=== PATIENT | male | born 1960 | race Caucasian/White ===

== ENCOUNTER 2017-05-13 00:13 | Inpatient (IN) | payer BC, OTHER ==
[2017-05-13] MEDS ORDERED: ONDANSETRON 4 MG/2 ML VIAL IVP STA (00:39)
[2017-05-13] MEDS ORDERED: SODIUM CHLORIDE 0.9% 1,000 ML IV STA (00:39)
[2017-05-13 00:51] LABS: Basophils % (A) 0 %; CH 29.9; CHCM 34.4; Eosinophils # (A) 0.2 k/uL (0-0.7); Eosinophils % (A) 2 %; HCT 46.6 % (39.0-53.0); HDW 2.76; HGB 16.3 gm/dL (13.0-17.5); Luc # (Auto) 0.19; Luc % (Auto) 2; Lymphocytes # (A) 1.9 k/uL (1.0-4.8); Lymphocytes % (A) 18 %; MCH 30.4 pg (25.0-35.0); MCHC 34.9 g/dL (31.0-37.0); MCV 87.3 fL (80.0-100.0); Mean Platelet Volume 7.1; Monocytes # (A) 0.7 k/uL (0-1.0); Monocytes % (A) 7 %; Neutrophils # (A) 7.7 k/uL (1.3-7.7); Neutrophils % (A) 72 %; RBC 5.34 m/uL (4.30-5.90); RDW 13.1 % (11.5-15.5); WBC 10.7 k/uL (3.8-10.6); WBC (Perox) 10.05
[2017-05-13 01:07] LABS: ALT 322 U/L (21-72); AST 422 U/L (17-59); Alkaline Phosphatase 127 U/L (38-126); Amylase 77 U/L (30-110); Anion Gap 15 mmol/L; Blood Urea Nitrogen 13 mg/dL (9-20); Carbon Dioxide 26 mmol/L (22-30); Chloride 102 mmol/L (98-107); Glucose 212 mg/dL (74-99); Non-African American GFR(MDRD) >60 (>60 ml/min/1.73 sqM); Potassium 3.8 mmol/L (3.5-5.1); Sodium 143 mmol/L (137-145); Total Bilirubin 3.7 mg/dL (0.2-1.3); Total Protein 7.6 g/dL (6.3-8.2)
[2017-05-13] MEDS ORDERED: PANTOPRAZOLE 40 MG/10 ML VIAL IVP STA (01:07)
[2017-05-13] MEDS ORDERED: MAG HYDROX/AL HYDROX/SIMETH 30 ML, HYOSCYAMINE ELIXIR 10 ML, CIMETIDINE HCL 300 MG PO STA ×3 (01:07)
[2017-05-13] MEDS ORDERED: HYDROmorphone 1 MG/ML 1 ML SYRINGE IVP STA (01:07)
[2017-05-13 01:09] LABS: Appearance,Urine Clear (Clear); Bilirubin,Urine 1+ (Negative); Glucose,Urine (UA) 3+ (Negative); Ketones,Urine 1+ (Negative); Leukocyte Esterase,Urine Negative (Negative); Mucus,Urine Moderate /hpf; Nitrite,Urine Negative (Negative); Particle Count 4852; Protein,Urine 1+ (Negative); RBC,Urine <1 /hpf (0-5); Specific Gravity,Urine 1.027 (1.001-1.035); UA Billing (MACRO vs. MICRO) MICRO; WBC,Urine 1 /hpf (0-5)
--- NOTE | 2017-05-13 01:24 | XR ---
EXAM: XR Abdomen, 1 View CLINICAL HISTORY: Abdominal pain, nausea, vomiting. TECHNIQUE: Frontal upright view of the abdomen/pelvis. Total images: 2. COMPARISON: Abdominal radiograph dated 07/15/14. FINDINGS: Gastrointestinal tract: Relatively paucity of bowel gas is nonspecific. No distended loops of small bowel or air-fluid levels. Small amount of stool and gas at the ascending colon. No evidence of free air. Surgical clip at the right upper quadrant. Bones/joints: Unremarkable as visualized. IMPRESSION: 1. Relatively paucity of bowel gas is nonspecific. 2. No distended loops of small bowel or air-fluid levels.
[2017-05-13] MEDS ORDERED: RX INFO: IV CONTRAST WAS GIVEN 1 EACH MISC MISCELLANE PRN (01:44)
--- NOTE | 2017-05-13 02:43 | ED ---
Abdominal Pain HPI - General Chief Complaint: Abdominal Pain Stated Complaint: abd pain Time Seen by Provider: 05/13/17 00:39 Source: patient, RN notes reviewed, old records reviewed Mode of arrival: ambulatory Limitations: no limitations - History of Present Illness Initial Comments: 56-year-old male patient's emergency Department chief complaint of epigastric and right upper quadrant abdominal pain for the past evening. Patient reports that he has a history of gallbladder issues. He states that he had a "gangrenous gallbladder that was partially removed". Patient reports that 2 years ago he had similar issues with stones being clogged in the common bile duct and cystic duct. Patient reports this pain feels similar to previous episodes. He denies any fever or chills. He reports he has been nauseated and did have one episode of vomiting. Bowel movements have been normal. Denies any associated back pain. - Related Data Home Medications Medication Instructions Recorded Confirmed No Known Home Medications [No 07/16/14 05/13/17 Known Home Medications] Allergies Allergy/AdvReac Type Severity Reaction Status Date / Time Barbiturates Allergy Unknown Verified 05/13/17 00:20 carbamazepine Allergy Unknown Verified 05/13/17 00:20 clindamycin Allergy Unknown Verified 05/13/17 00:20 diclofenac [Diclofenac] Allergy Unknown Verified 05/13/17 00:20 erythromycin base Allergy Unknown Verified 05/13/17 00:20 [Erythromycin Base] heparin Allergy Rash/Hives Verified 05/13/17 00:20 hydralazine [Hydralazine] Allergy Unknown Verified 05/13/17 00:20 lidocaine Allergy Unknown Verified 05/13/17 00:20 meprobamate Allergy Unknown Verified 05/13/17 00:20 methyldopa Allergy Unknown Verified 05/13/17 00:20 orphenadrine Allergy Unknown Verified 05/13/17 00:20 phenytoin Allergy Unknown Verified 05/13/17 00:20 rifampin Allergy Unknown Verified 05/13/17 00:20 spironolactone Allergy Unknown Verified 05/13/17 00:20 Sulfa (Sulfonamide Allergy Unknown Verified 05/13/17 00:20 Antibiotics) tramadol Allergy Unknown Verified 05/13/17 00:20 Review of Systems ROS Statement: Those systems with pertinent positive or pertinent negative responses have been documented in the HPI. ROS Other: All systems not noted in ROS Statement are negative. Past Medical History Additional Past Medical History / Comment(s): ACUTE INTERMITTANT PORPHYRIA History of Any Multi-Drug Resistant Organisms: None Reported Past Surgical History: Cholecystectomy Past Anesthesia/Blood Transfusion Reactions: No Reported Reaction Past Psychological History: No Psychological Hx Reported Smoking Status: Never smoker Past Alcohol Use History: None Reported Past Drug Use History: None Reported - Past Family History Mother Family Medical History: No Reported History, Diabetes Mellitus Father Additional Family Medical History / Comment(s): acute intermittent porphyria General Exam - General Exam Comments Initial Comments: 56-year-old male. Patient does not appear to be in any acute distress. Limitations: no limitations General appearance: alert, in no apparent distress Head exam: Present: atraumatic Eye exam: Present: normal appearance, PERRL, EOMI. Absent: scleral icterus, conjunctival injection, periorbital swelling ENT exam: Present: normal exam, mucous membranes moist Neck exam: Present: normal inspection. Absent: tenderness, meningismus, lymphadenopathy Respiratory exam: Present: normal lung sounds bilaterally. Absent: respiratory distress, wheezes, rales, rhonchi, stridor Cardiovascular Exam: Present: regular rate, normal rhythm, normal heart sounds. Absent: systolic murmur, diastolic murmur, rubs, gallop, clicks GI/Abdominal exam: Present: soft, tenderness (Mild right upper quadrant tenderness.), normal bowel sounds. Absent: distended, guarding, rebound, rigid Extremities exam: Present: normal inspection, full ROM, normal capillary refill. Absent: tenderness, pedal edema, joint swelling, calf tenderness Back exam: Present: normal inspection Neurological exam: Present: alert, oriented X3, CN II-XII intact Psychiatric exam: Present: normal affect, normal mood Skin exam: Present: warm, dry, intact, normal color. Absent: rash Course Vital Signs 05/13/17 05/13/17 00:17 03:27 Temperature 97.7 F 97.6 F Pulse Rate 88 77 Respiratory 18 18 Rate Blood Pressure 165/84 131/73 O2 Sat by Pulse 97 95 Oximetry Medical Decision Making - Medical Decision Making 56-year-old male patient's emergency Department chief complaint of epigastric and right upper quadrant abdominal pain for the past evening. Patient reports that he has a history of gallbladder issues. He states that he had a "gangrenous gallbladder that was partially removed". Patient reports that 2 years ago he had similar issues with stones being clogged in the common bile duct and cystic duct. Patient reports this pain feels similar to previous episodes. He denies any fever or chills. He reports he has been nauseated and did have one episode of vomiting. Lab work was reviewed and shows multiple elevated transaminases. Patient CAT scan was ordered and shows evidence of a 6 mm calcified density in the region of the distal common bile duct suspicious for choledocholithiasis. Common bile duct appears to be 7 mm. Discussed this case with Dr. Reyes. Patient will be admitted for elevated liver enzymes and the choledocholithiasis. Patient will remain nothing by mouth for the remainder of the day. - Lab Data Result diagrams: 05/13/17 00:20 05/13/17 00:20 Lab Results 05/13/17 05/13/17 05/13/17 Range/Units 00:20 00:20 00:55 WBC 10.7 H (3.8-10.6) k/uL RBC 5.34 (4.30-5.90) m/uL Hgb 16.3 (13.0-17.5) gm/dL Hct 46.6 (39.0-53.0) % MCV 87.3 (80.0-100.0) fL MCH 30.4 (25.0-35.0) pg MCHC 34.9 (31.0-37.0) g/dL RDW 13.1 (11.5-15.5) % Plt Count 389 (150-450) k/uL Neutrophils % 72 % Lymphocytes % 18 % Monocytes % 7 % Eosinophils % 2 % Basophils % 0 % Neutrophils # 7.7 (1.3-7.7) k/uL Lymphocytes # 1.9 (1.0-4.8) k/uL Monocytes # 0.7 (0-1.0) k/uL Eosinophils # 0.2 (0-0.7) k/uL Basophils # 0.0 (0-0.2) k/uL Sodium 143 (137-145) mmol/L Potassium 3.8 (3.5-5.1) mmol/L Chloride 102 (98-107) mmol/L Carbon Dioxide 26 (22-30) mmol/L Anion Gap 15 mmol/L BUN 13 (9-20) mg/dL Creatinine 1.00 (0.66-1.25) mg/dL Est GFR (MDRD) Af Amer >60 (>60 ml/min/1.73 sqM) Est GFR (MDRD) Non-Af >60 (>60 ml/min/1.73 sqM) Glucose 212 H (74-99) mg/dL Calcium 10.0 (8.4-10.2) mg/dL Total Bilirubin 3.7 H (0.2-1.3) mg/dL AST 422 H (17-59) U/L ALT 322 H (21-72) U/L Alkaline Phosphatase 127 H (38-126) U/L Total Protein 7.6 (6.3-8.2) g/dL Albumin 4.8 (3.5-5.0) g/dL Amylase 77 (30-110) U/L Lipase 162 (23-300) U/L Urine Color Dark Yellow Urine Appearance Clear (Clear) Urine pH 6.0 (5.0-8.0) Ur Specific [place] 1.027 (1.001-1.035) Urine Protein 1+ H (Negative) Urine Glucose (UA) 3+ H (Negative) Urine Ketones 1+ H (Negative) Urine Blood Negative (Negative) Urine Nitrite Negative (Negative) Urine Bilirubin 1+ H (Negative) Urine Urobilinogen 4.0 (<2.0) mg/dL Ur Leukocyte Esterase Negative (Negative) Urine RBC <1 (0-5) /hpf Urine WBC 1 (0-5) /hpf Urine Mucus Moderate H (None) /hpf - Radiology Data Radiology results: report reviewed CT abdomen and pelvis shows evidence of a 4 mm right 6 no major calcified density in the region of the distal common bile duct, suspicious for choledocholithiasis. No significant intrahepatic or extrahepatic biliary duct dilation. Common bile duct measures approximately 7 mm. The stone has a different appearance compared to prior exams. Read demonstrated cholecystectomy changes with residual gallstones of the cystic duct remnant. Also note there is a 52 mm cyst visualized in the left kidney. No renal stone or hydronephrosis. There is subtle mesenteric edema which is nonspecific and unchanged. Disposition Clinical Impression: Choledocholithiasis, Transaminitis, Nausea & vomiting, Calculus of cystic duct Disposition: ADMITTED IP TO THIS HOSP Condition: Stable Referrals: Raul Valdez MD [Primary Care Provider] - 1-2 days Time of Disposition: 03:47
--- NOTE | 2017-05-13 03:33 | CT ---
EXAM: CT Abdomen and Pelvis With Intravenous Contrast CLINICAL HISTORY: Upper abdominal pain, nausea, vomiting. TECHNIQUE: Multiple, contiguous axial cuts of the abdomen and pelvis are obtained from the lung bases to the ischial tuberosities after the administration of 100 cc Omnipaque 300. Sagittal and coronal reformatted images were created and reviewed. DLP: 1935.50 COMPARISON: CT abdomen and pelvis 07/15/2014. FINDINGS: The lung bases are clear. The liver and spleen are normal in size and free of mass lesions. There is a small hiatal hernia. There are surgical clips present in the gallbladder fossa compatible with prior cholecystectomy. There are multiple calcified gallstones within the cystic duct remnant. There is a 4 mm x 6 mm calcified density in the region of the distal common bile duct, suspicious for choledocholithiasis. However, there is no significant intrahepatic or extrahepatic biliary duct dilatation. The common bile duct measures 7 mm. The pancreas is unremarkable. The adrenal glands are unremarkable. The kidneys are normal in size and contour. There is a 15 mm cyst visualized in the mid pole of the left kidney. No ureteral stone or hydronephrosis. There is subtle central mesenteric edema, which is nonspecific and unchanged in the interval. No evidence of bowel obstruction. The appendix is unremarkable. Aorta is normal caliber. Incidental note is made of a retroaortic left renal vein. No free fluid or free air. There is a small periumbilical hernia. The osseous structures are normal IMPRESSION: 1. There is a 4 mm x 6 mm calcified density in the region of the distal common bile duct, suspicious for choledocholithiasis. No significant intrahepatic or extrahepatic biliary duct dilatation. The common bile duct measures 7 mm. Of note, the stone has a different appearance compared to the prior exam. 2. Redemonstrated cholecystectomy changes with residual gallstones at the cystic duct remnant. 3. Additional chronic and incidental findings as above.
[2017-05-13] MEDS ORDERED: HYDROmorphone 1 MG/ML 1 ML SYRINGE IV PRN (03:50)
[2017-05-13] MEDS ORDERED: LORazepam 2 MG/ML SYRINGE IV PRN (03:50)
[2017-05-13] MEDS ORDERED: ONDANSETRON 4 MG/2 ML VIAL IVP PRN (03:50)
[2017-05-13] MEDS ORDERED: NALOXONE 0.4 MG/ML 1 ML VIAL IV PRN (03:50)
[2017-05-13] MEDS: SODIUM CHLORIDE 0.9% 1,000 ML IV SCH ×4 (04:22→23:14)
[2017-05-13 04:56] VITALS: BMI 34.4
--- NOTE | 2017-05-13 08:29 | US ---
EXAMINATION TYPE: US gallbladder DATE OF EXAM: 05/13/2017 COMPARISON: CT abdomen and pelvis earlier today. CLINICAL HISTORY: Choledocholithiasis. ABD pain/ Pt has history of margarita with CBD stones removed in t he past EXAM MEASUREMENTS: Liver Length: 17.3 cm CBD: 0.7 cm Right Kidney: 10.4 x 5.5 x 5.1 cm Pancreas: Difficult to visualize due to large body habitus Liver: Heterogeneous, upper limits of normal for size Gallbladder: Surgically absent Evidence for sonographic Cook's sign: No CBD: 8mm echogenic foci visualized adjacent to GB surgical clips, ?correlation to CT findings Right Kidney: wnl Pancreas is suboptimally seen secondary to shadowing from overlying bowel gas appeared within normal limits on recent CT. Visualized liver is heterogeneously hyperechoic suggesting diffuse fatty infiltr ation. No worrisome intrahepatic masses or ductal dilatation is seen. Seen better on CT there is remn ant stone filled gallbladder or cystic duct remnant slightly more rounded in contour than normal duct adjacent to cholecystectomy clips. Cystic duct is prominent with low common hepatic duct confluence seen better on CT. Suspect distal common bile duct calculus on coronal image [address] CT[address] IMPRESSION: Calcifications in cystic duct remnant or remnant contracted gallbladder fragment. Promine nt cystic duct. Suspect choledocholithiasis. All findings seen better on recent CT. ERCP follow-up ad vised.
[2017-05-13] MEDS: PANTOPRAZOLE 40 MG/10 ML VIAL IV SCH (09:23)
--- NOTE | 2017-05-13 10:23 | P.GSCN ---
History of Present Illness Consult date: 05/13/17 Reason for Consult: Abdominal pain. Jaundice. History of present illness: Thank you very much for asking us to ask see this patient. I'm seeing him for Dr. De León. He he is a 56-year-old white male were and had a open cholecystectomy for acute gangrenous cholecystitis cholelithiasis. He has had the previous episodes of choledocholithiasis. Had to be transferred to [facility] because of unsuccessful ERCP here and apparently had a stone removed the then about the 2-3 years ago. Was admitted last night with the recurrent abdominal pain mostly in the epigastric right upper quadrant area associated with nausea and an episode of vomiting. Pain is improved as is his symptoms since he was admitted. Was found to have elevated LFTs. Computed tomography scan and ultrasound showed evidence of the distal common bile duct stone with question of calcifications in the cystic duct remnant. Patient is otherwise fairly healthy. No medications on a daily basis at home. No fever or chills. ALLERGIES. Barbiturates carbamazepine. Clindamycin diclofenac. Systems review otherwise negative. No chest pain or cough hemoptysis no cardiac or respiratory issues. No urinary symptoms. No change in his bowel habits. No blood in his stool. On examination the patient is well-built well-nourished resting comfortably in no acute distress. Overweight. Slightly jaundiced. Vitals are normal. Head and neck are normal. Heart and lungs are clear. Abdomen is soft with the hardly any tenderness now in the epigastric right upper quadrant area no guarding or rebound. No mass or organomegaly or hernias noted. Has well-healed scar in the right upper quadrant. Laboratory studies reviewed. WBCs 10,700. Hemoglobin 16.3. Total bilirubin is 3.7. AST 422 AST 322 and alkaline phosphatase 127. Impression. Choledocholithiasis confirmed on ultrasound and computed tomography scan with the jaundice. Recommendation. Agree with plans for GI consult the for ERCP. In the meantime close monitoring of the patient in the his LFTs. We will follow with you. Past Medical History Past Medical History: Diabetes Mellitus Additional Past Medical History / Comment(s): ACUTE INTERMITTANT PORPHYRIA History of Any Multi-Drug Resistant Organisms: None Reported Past Surgical History: Cholecystectomy Additional Past Surgical History / Comment(s): Gall stone removal Past Anesthesia/Blood Transfusion Reactions: No Reported Reaction Past Psychological History: No Psychological Hx Reported Smoking Status: Never smoker Past Alcohol Use History: None Reported Past Drug Use History: None Reported - Past Family History Mother Family Medical History: No Reported History, Diabetes Mellitus Father Additional Family Medical History / Comment(s): acute intermittent porphyria Medications and Allergies Home Medications Medication Instructions Recorded Confirmed Type No Known Home Medications [No 07/16/14 05/13/17 History Known Home Medications] Allergies Allergy/AdvReac Type Severity Reaction Status Date / Time Barbiturates Allergy Unknown Verified 05/13/17 00:20 carbamazepine Allergy Unknown Verified 05/13/17 00:20 clindamycin Allergy Unknown Verified 05/13/17 00:20 diclofenac [Diclofenac] Allergy Unknown Verified 05/13/17 00:20 erythromycin base Allergy Unknown Verified 05/13/17 00:20 [Erythromycin Base] heparin Allergy Rash/Hives Verified 05/13/17 00:20 hydralazine [Hydralazine] Allergy Unknown Verified 05/13/17 00:20 lidocaine Allergy Unknown Verified 05/13/17 00:20 meprobamate Allergy Unknown Verified 05/13/17 00:20 methyldopa Allergy Unknown Verified 05/13/17 00:20 orphenadrine Allergy Unknown Verified 05/13/17 00:20 phenytoin Allergy Unknown Verified 05/13/17 00:20 rifampin Allergy Unknown Verified 05/13/17 00:20 spironolactone Allergy Unknown Verified 05/13/17 00:20 Sulfa (Sulfonamide Allergy Unknown Verified 05/13/17 00:20 Antibiotics) tramadol Allergy Unknown Verified 05/13/17 00:20 Surgical - Exam Vital Signs Temp Pulse Resp BP Pulse Ox 97.7 F 88 18 165/84 97 05/13/17 00:17 05/13/17 00:17 05/13/17 00:17 05/13/17 00:17 05/13/17 00:17 Results - Labs 05/13/17 00:20 05/13/17 00:20 Abnormal Lab Results - Last 24 Hours (Table) 05/13/17 05/13/17 05/13/17 Range/Units 00:20 00:20 00:55 WBC 10.7 H (3.8-10.6) k/uL Glucose 212 H (74-99) mg/dL Total Bilirubin 3.7 H (0.2-1.3) mg/dL AST 422 H (17-59) U/L ALT 322 H (21-72) U/L Alkaline Phosphatase 127 H (38-126) U/L Urine Protein 1+ H (Negative) Urine Glucose (UA) 3+ H (Negative) Urine Ketones 1+ H (Negative) Urine Bilirubin 1+ H (Negative) Urine Mucus Moderate H (None) /hpf Diabetes panel 05/13/17 Range/Units 00:20 Sodium 143 (137-145) mmol/L Potassium 3.8 (3.5-5.1) mmol/L Chloride 102 (98-107) mmol/L Carbon Dioxide 26 (22-30) mmol/L BUN 13 (9-20) mg/dL Creatinine 1.00 (0.66-1.25) mg/dL Glucose 212 H (74-99) mg/dL Calcium 10.0 (8.4-10.2) mg/dL AST 422 H (17-59) U/L ALT 322 H (21-72) U/L Alkaline Phosphatase 127 H (38-126) U/L Total Protein 7.6 (6.3-8.2) g/dL Albumin 4.8 (3.5-5.0) g/dL Calcium panel 05/13/17 Range/Units 00:20 Calcium 10.0 (8.4-10.2) mg/dL Albumin 4.8 (3.5-5.0) g/dL Pituitary panel 05/13/17 Range/Units 00:20 Sodium 143 (137-145) mmol/L Potassium 3.8 (3.5-5.1) mmol/L Chloride 102 (98-107) mmol/L Carbon Dioxide 26 (22-30) mmol/L BUN 13 (9-20) mg/dL Creatinine 1.00 (0.66-1.25) mg/dL Glucose 212 H (74-99) mg/dL Calcium 10.0 (8.4-10.2) mg/dL Adrenal panel 05/13/17 Range/Units 00:20 Sodium 143 (137-145) mmol/L Potassium 3.8 (3.5-5.1) mmol/L Chloride 102 (98-107) mmol/L Carbon Dioxide 26 (22-30) mmol/L BUN 13 (9-20) mg/dL Creatinine 1.00 (0.66-1.25) mg/dL Glucose 212 H (74-99) mg/dL Calcium 10.0 (8.4-10.2) mg/dL Total Bilirubin 3.7 H (0.2-1.3) mg/dL AST 422 H (17-59) U/L ALT 322 H (21-72) U/L Alkaline Phosphatase 127 H (38-126) U/L Total Protein 7.6 (6.3-8.2) g/dL Albumin 4.8 (3.5-5.0) g/dL
[2017-05-13] MEDS: diphenhydrAMINE 25 MG CAP PO PRN ×2 (13:19→19:04)
[2017-05-13] MEDS: FAMOTIDINE 20 MG/2 ML VIAL IV SCH ×2 (13:49→20:13)
[2017-05-13] MEDS: methylPREDNISolone SOD SUCCI 40 MG/ML 1 ML VIAL IV SCH ×3 (13:49→23:14)
[2017-05-13 14:13] LABS: Hemoglobin A1C 7.1 % (4.2-6.1)
[2017-05-13 17:10] LABS: Glucose,Whole Blood 169 mg/dL (75-99)
[2017-05-13] MEDS: DEXTROSE 5%-0.9% NACL 1,000 ML IV SCH ×2 (17:31→20:12)
--- NOTE | 2017-05-13 17:43 | HP ---
Narciso Pierson is a 56 year old male who presented to the ED with abdominal pain. This was located in the epigastric area. He subsequently was seen in the ED and admitted for further evaluation. Past medical history is positive for gangrenous cholecystitis for which he underwent surgery. Subsequently, he was found to have choledocholithiasis and underwent surgery for that as well in 2013. He also has a history of acute intermittent ( ). Family history is noncontributory. Social history: The patient is a never smoker. Does not drink alcohol excessively. Medications prior to admission: Not known. The patient has had ADVERSE REACTIONS TO BARBITURATES, CARBAMAZEPINE, CLINDAMYCIN, DICLOFENAC, ERYTHROMYCIN, HEPARIN, HYDRALAZINE, LIDOCAINE, ( ) , ( ), PHENYTOIN, RIFAMPIN, SPIRONOLACTONE, SULFA AND TRAMADOL. On physical examination, respiratory rate is 16, pulse rate 75. Temperature 97.7, blood pressure 142/89. O2 sat on room air his 96%. HEENT: reveals pupils are equal, icterus. Chest is clear. Cardiovascular system reveals an S1 , S2, abdomen is soft. There is no pedal edema. Labs revealed a white count of 10.7. Hemoglobin 16.3. Sodium 143, potassium 3.8 , chloride 102, bicarb 26. BUN 13. Creatinine 1. Bilirubin 3.7. AST 422. ALT 322. Alk phos 127. 1+ urine bilirubin. Ultrasound of the right upper quadrant shows calcification in the cystic duct remnant suspect choledocholithiasis. Seen better on recent CT. IMPRESSION: 1. Obstructive jaundice secondary to choledocholithiasis. 2. ( ). 3. Obesity. At this point in time, the patient has been seen by surgery and Gastroenterology. Plan is for possible ERCP. Keep him on IV fluids with D5 normal saline. He has had Hives with heparin and will be undergoing ERCP so we will hold off on anticoagulation. Keep him on GI prophylaxis. Depending on how he does, we shall make further changes to his care. JOELLE
[2017-05-13] MEDS: INSULIN LISPRO (humaLOG) 300 UNIT/3 ML VIAL SQ SCH ×2 (17:47→20:13)
[2017-05-13 20:09] LABS: Glucose,Whole Blood 214 mg/dL (75-99)
[2017-05-14] MEDS: diphenhydrAMINE 25 MG CAP PO PRN ×3 (05:14→17:23)
[2017-05-14] MEDS: methylPREDNISolone SOD SUCCI 40 MG/ML 1 ML VIAL IV SCH ×3 (05:15→17:22)
[2017-05-14 06:48] LABS: Glucose,Whole Blood 175 mg/dL (75-99)
--- NOTE | 2017-05-14 07:39 | P.CONS ---
History of Present Illness - Reason for Consult Consult date: 05/13/17 CBD obstruction Requesting physician: Raul Valdez - History of Present Illness The patient is a 56-year-old male who presented to the emergency Department with complaints of epigastric and right upper quadrant abdominal pain of acute onset. He had nausea and one episode of vomiting. He was found to have elevated liver enzymes. CT and US revealed dilated CBD at 7 mm and calcifications in the cystic duct stump and CBD. The patient has history of prior cholecystectomy in 2002 secondary to cholelithiasis and gangrenous cholecystitis and in June 2014 he presented with jaundice and was found to have multiple calculi in the remnant of the cystic duct and a filling defect in the distal common bile duct suggestive of common bile duct stone. The patient has history of porphyria and was found to have hepatomegaly and possible fatty liver as well. I was not able to cannulate his CBD at that time and he was sent to [facility] where he had a sphincterotomy and a stone was removed and was told he may have this problem recur in the future. The patient has done well until this time. Review of Systems Constitutional: Denies fever, chills, sweats, weight gain, or loss. HEENT: Negative for migraines, blurred vision or loss, earaches, drainage, tinnitus, oral mucosal lesions, dysphagia, or odynophagia. Cardiac: Hypertension. Negative for chest pain, arrhythmias, or palpitation. Respiratory: Negative for shortness of breath, hemoptysis, cough, or sputum production. Gastrointestinal: See HPI for pertinent findings. Genitourinary: Negative for hematuria, urgency, frequency, polyuria, dysuria, or penile discharge. Musculoskeletal: Negative for muscle aches, swelling, arthritis, and arthralgias. Neurologic: RLS. Negative for stroke or TIA. Endocrine: Diabetes. Negative for thyroid problems. Skin: Negative for rash or itching. Psychiatric: Negative history for depression and anxiety Past Medical History Past Medical History: Diabetes Mellitus Additional Past Medical History / Comment(s): ACUTE INTERMITTANT PORPHYRIA History of Any Multi-Drug Resistant Organisms: None Reported Past Surgical History: Cholecystectomy Additional Past Surgical History / Comment(s): Gall stone removal Past Anesthesia/Blood Transfusion Reactions: No Reported Reaction Past Psychological History: No Psychological Hx Reported Smoking Status: Never smoker Past Alcohol Use History: None Reported Past Drug Use History: None Reported - Past Family History Mother Family Medical History: No Reported History, Diabetes Mellitus Father Additional Family Medical History / Comment(s): acute intermittent porphyria Medications and Allergies Home Medications Medication Instructions Recorded Confirmed Type No Known Home Medications [No 07/16/14 05/13/17 History Known Home Medications] Allergies Allergy/AdvReac Type Severity Reaction Status Date / Time Barbiturates Allergy Unknown Verified 05/13/17 10:49 carbamazepine Allergy Unknown Verified 05/13/17 10:49 clindamycin Allergy Unknown Verified 05/13/17 10:49 diclofenac [Diclofenac] Allergy Unknown Verified 05/13/17 10:49 erythromycin base Allergy Unknown Verified 05/13/17 10:49 [Erythromycin Base] heparin Allergy Rash/Hives Verified 05/13/17 10:49 hydralazine [Hydralazine] Allergy Unknown Verified 05/13/17 10:49 lidocaine Allergy Unknown Verified 05/13/17 10:49 meprobamate Allergy Unknown Verified 05/13/17 10:49 methyldopa Allergy Unknown Verified 05/13/17 10:49 orphenadrine Allergy Unknown Verified 05/13/17 10:49 phenytoin Allergy Unknown Verified 05/13/17 10:49 rifampin Allergy Unknown Verified 05/13/17 10:49 spironolactone Allergy Unknown Verified 05/13/17 10:49 Sulfa (Sulfonamide Allergy Unknown Verified 05/13/17 10:49 Antibiotics) tramadol Allergy Unknown Verified 05/13/17 10:49 Physical Exam Vitals: Vital Signs Temp Pulse Pulse Resp BP BP Pulse Ox 05/13/17 07:00 98.1 F 72 14 148/89 96 05/13/17 05:10 98.4 F 77 16 155/91 96 05/13/17 04:02 77 16 155/91 96 05/13/17 03:27 97.6 F 77 18 131/73 95 05/13/17 00:17 97.7 F 88 18 165/84 97 Intake and Output 05/12/17 05/13/17 05/13/17 22:59 06:59 14:59 Intake Total 0 Balance 0 Intake: Oral 0 Other: Voiding Method Toilet Weight 108.86 kg General appearance: The patient is alert, oriented, in no acute distress. HET: Head is normocephalic and atraumatic. Conjunctivae pink, sclerae icteric. Pupils are equal and reactive. Oropharynx is clear without lesions. Neck: Supple without lymphadenopathy. Trachea midline. Heart: S1 S2. Lungs: No crackles or wheezes are heard. Abdomen: Soft, nontender, nondistended with bowel sounds. No peritoneal signs. No palpable organomegaly or masses. Extremities: Normal skin color and turgor. No cyanosis, rash, ulceration, clubbing, or edema. Radial and pedal pulses are 2/4 bilaterally. Neurological: No focal deficits. Strength and sensation are grossly intact. Results CBC & Chem 7: 05/13/17 00:20 05/13/17 00:20 Labs: Abnormal Lab Results - Last 24 Hours (Table) 05/13/17 05/13/17 05/13/17 Range/Units 00:20 00:20 00:55 WBC 10.7 H (3.8-10.6) k/uL Glucose 212 H (74-99) mg/dL Total Bilirubin 3.7 H (0.2-1.3) mg/dL AST 422 H (17-59) U/L ALT 322 H (21-72) U/L Alkaline Phosphatase 127 H (38-126) U/L Urine Protein 1+ H (Negative) Urine Glucose (UA) 3+ H (Negative) Urine Ketones 1+ H (Negative) Urine Bilirubin 1+ H (Negative) Urine Mucus Moderate H (None) /hpf Assessment and Plan Plan: 56-year old male with history of CBD and cystic duct stump stones, presenting with abdominal pain and abnormal LFTs. Imaging studies consistent with choledocholithiasis. I will plan an ERCP tomorrow or Monday.
[2017-05-14] MEDS: FAMOTIDINE 20 MG/2 ML VIAL IV SCH ×2 (07:40→20:22)
[2017-05-14] MEDS: INSULIN LISPRO (humaLOG) 300 UNIT/3 ML VIAL SQ SCH ×4 (07:40→20:22)
[2017-05-14] MEDS: PANTOPRAZOLE 40 MG/10 ML VIAL IV SCH (07:40)
--- NOTE | 2017-05-14 09:27 | P.PN ---
Progress Note - Text The patient is awake alert stable. No abdominal pain. Was admitted with evidence of choledocholithiasis and jaundice and mild pancreatitis. On examination the patient is awake alert in no distress. No fever. Abdomen is quite soft and benign and nontender with no mass or organomegaly. Lab work is pending. Impression choledocholithiasis with jaundice. History of common duct stones and cystic duct stone. Recommendation patient is scheduled to have ERCP either today or tomorrow depending on his lab work which is pending. We will continue to follow.
[2017-05-14 10:51] LABS: INR 1.2 (<1.2); Prothrombin Time 11.5 sec (9.0-12.0)
[2017-05-14 10:54] LABS: Basophils % (A) 0 %; CHCM 33.1; Eosinophils % (A) 0 %; HCT 47.8 % (39.0-53.0); HDW 2.66; Luc # (Auto) 0.04; Luc % (Auto) 0; Lymphocytes # (A) 0.7 k/uL (1.0-4.8); Lymphocytes % (A) 4 %; MCH 30.6 pg (25.0-35.0); MCHC 33.5 g/dL (31.0-37.0); MCV 91.4 fL (80.0-100.0); Mean Platelet Volume 7.1; Monocytes # (A) 0.5 k/uL (0-1.0); Monocytes % (A) 3 %; Neutrophils # (A) 14.5 k/uL (1.3-7.7); Neutrophils % (A) 92 %; RBC 5.23 m/uL (4.30-5.90); RDW 13.3 % (11.5-15.5); WBC 15.7 k/uL (3.8-10.6); WBC (Perox) 15.35
[2017-05-14 11:00] LABS: ALT 437 U/L (21-72); AST 151 U/L (17-59); Alkaline Phosphatase 138 U/L (38-126); Amylase 57 U/L (30-110); Anion Gap 9 mmol/L; Blood Urea Nitrogen 9 mg/dL (9-20); Calcium 9.1 mg/dL (8.4-10.2); Carbon Dioxide 24 mmol/L (22-30); Chloride 108 mmol/L (98-107); Glucose 206 mg/dL (74-99); Non-African American GFR(MDRD) >60 (>60 ml/min/1.73 sqM); Sodium 141 mmol/L (137-145); Total Bilirubin 2.4 mg/dL (0.2-1.3)
[2017-05-14 11:07] LABS: Glucose,Whole Blood 198 mg/dL (75-99)
[2017-05-14 11:34] LABS: Total Protein 7.1 g/dL (6.3-8.2)
[2017-05-14] MEDS: DEXTROSE 5%-0.9% NACL 1,000 ML IV SCH ×2 (12:32→21:57)
[2017-05-14] MEDS: SODIUM CHLORIDE 0.9% 1,000 ML IV SCH (12:41)
--- NOTE | 2017-05-14 16:37 | PN ---
DATE OF SERVICE: 05/14/17 The patient was seen again on 05/14/17. He has less abdominal pain. He was on IV fluids and is NPO for possible ERCP today. On physical examination, his blood pressure is 152/90. Respiratory rate is 14. Pulse rate 74. Temperature 97.9. O2 sat on room air is 95%. HEENT is unremarkable. Chest clear. Cardiovascular system reveals an S1, S2. Abdomen is soft. There is no pedal edema. Labs revealed white count 15.7. Hemoglobin 16. Sodium 141. Potassium 4. Chloride 108. Bicarb 24. BIlirubin 2.4, AST 151, ALT 457. Alk phos 138. Amylase 57, lipase 103. IMPRESSION: 1. Obstructive jaundice with choledocholithiasis is likely. 2. History of porphyria, possible allergic reaction. Await ERCP and deifnitive treatment by gastroenterology. Increase activity level. Prognosis fair. MTDD
[2017-05-14 17:12] LABS: Glucose,Whole Blood 239 mg/dL (75-99)
[2017-05-14 20:02] LABS: Glucose,Whole Blood 278 mg/dL (75-99)
[2017-05-15] MEDS: methylPREDNISolone SOD SUCCI 40 MG/ML 1 ML VIAL IV SCH ×4 (00:37→18:03)
[2017-05-15] MEDS: diphenhydrAMINE 25 MG CAP PO PRN ×4 (00:43→21:54)
[2017-05-15 06:40] LABS: Glucose,Whole Blood 213 mg/dL (75-99)
[2017-05-15] MEDS: SODIUM CHLORIDE 0.9% 1,000 ML IV SCH ×4 (09:52→21:47)
[2017-05-15] MEDS: DEXTROSE 5%-0.9% NACL 1,000 ML IV SCH ×2 (10:05→15:11)
[2017-05-15] MEDS: INSULIN LISPRO (humaLOG) 300 UNIT/3 ML VIAL SQ SCH ×4 (10:06→21:51)
[2017-05-15] MEDS: FAMOTIDINE 20 MG/2 ML VIAL IV SCH ×2 (10:06→21:50)
[2017-05-15 11:43] LABS: Glucose,Whole Blood 205 mg/dL (75-99)
[2017-05-15] MEDS ORDERED: LEVOFLOXACIN 500MG-D5W PMX 500 MG in DEXTROSE/WATER 1 100ML.BAG IVPB STA (12:31)
[2017-05-15] MEDS: INDOMETHACIN 50MG SUPPOSITORY RECTAL ONE ×2 (13:12→15:03)
--- NOTE | 2017-05-15 14:50 | P.PN ---
Progress Note - Text The patient is a stable awake alert. Minimal abdominal discomfort. On examination he is afebrile. Obviously jaundiced anicteric. Abdomen is soft not particularly tender today no distention or mass noted. Impression hyperbilirubinemia to be secondary to evidence of recurrent common bile duct stone. Recommendation. Agree with plans for ERCP within the next 24 hours and further management will depend on the findings and clinical course.
[2017-05-15] MEDS ORDERED: IV FLUID CONTINUATION 1,000 ML IV ONE (15:20)
[2017-05-15] MEDS ORDERED: LABETALOL 5 MG/ML VIAL MDV ONE (15:46)
[2017-05-15] MEDS ORDERED: PROPOFOL 10 MG/ML 20 ML VIAL IV ONE (15:46)
[2017-05-15] MEDS ORDERED: LACTATED RINGERS 1,000 ML IV ONE (16:04)
[2017-05-15] MEDS ORDERED: IOHEXOL 300 MG/ML 50 ML BOTTLE MISCELLANE ONE (16:14)
--- NOTE | 2017-05-15 16:45 | P.PCN ---
Date of Procedure: 05/15/17 Preoperative Diagnosis: Postoperative Diagnosis: Procedure(s) Performed: Procedure: Endoscopic retrograde cholangiography and sphincterotomy with the passing of the 11.5 mm balloon catheter fully inflated across the sphincterotomy site. Preoperative diagnosis: Abdominal pain and suspected choledocholithiasis. Postoperative diagnosis: 1. Filling defects noted in the common bile duct under fluoroscopy. 2. S/P enlargement of the sphincterotomy site and passing of the 11.5 mm balloon catheter fully inflated across the sphincterotomy site. Preparation and sedation: Was provided by anesthesia. Brief clinical history: The patient is a 56-year-old male who presented to the emergency Department with complaints of epigastric and right upper quadrant abdominal pain of acute onset. He had nausea and one episode of vomiting. He was found to have elevated liver enzymes. CT and US revealed dilated CBD at 7 mm and calcifications in the cystic duct stump and CBD. The patient has history of prior cholecystectomy in 2002 secondary to cholelithiasis and gangrenous cholecystitis and in June 2014 he presented with jaundice and was found to have multiple calculi in the remnant of the cystic duct and a filling defect in the distal common bile duct suggestive of common bile duct stone. The patient has history of porphyria and was found to have hepatomegaly and possible fatty liver as well. I was not able to cannulate his CBD at that time and he was sent to [facility] where he had a sphincterotomy and a stone was removed and was told he may have this problem recur in the future. The patient has done well until this time. The details are summarized in the history and physical and dictated consultation. Procedure: With the patient in the prone position and after informed consent and adequate sedation, I passed the Olympus video duodenoscope down the esophagus into the stomach and then passed it through the pylorus into the duodenum and brought the papilla into view. The papillary orifice appeared somewhat stenotic but I was able to pass the catheter and inject dye under fluoroscopy. The common bile duct appeared slightly dilated and there was at least a filling defect or 2 measuring less than 1 cm that could represent common bile duct stones. I proceeded to exchange the catheter for a sphincterotome over the guidewire then enlarged the sphincterotomy, following which, I passed the 11.5 mm balloon catheter into the proximal common bile duct inflated it and withdrew it fully inflated couple times. I then performed a cholangiogram using the inflated balloon to tamponade the sphincterotomy site. No definite retained common bile duct stones were noted at that point. Also noted during this exam was the cystic duct stump filling defects, but it appeared that those are excluded from the common bile duct and biliary tree by a narrow remnant of the cystic duct. The patient tolerated the procedure well. Plan: The patient was reassured. Will allow diet and monitor his condition overnight. Repeat his liver enzymes in the morning. Its possible that part of his presentation was related to choledocholithiasis and a degree of cholangitis. I would consider sending him home on a five-day course of Levaquin despite clearing his common bile duct since he will continue to have the cystic duct stump stones. Will make further plans in the future as based on his course. Implants: Indications for Procedure: Operative Findings: Description of Procedure:
[2017-05-15 17:04] LABS: Glucose,Whole Blood 198 mg/dL (75-99)
--- NOTE | 2017-05-15 20:08 | PN ---
DATES OF SERVICE: 05/15/17 The patient was seen again on 05/15/17. He does not have any abdominal pain and is doing well overall. On physical examination, his blood pressure 157/90. respiratory rate is 16. Pulse rate 83. Temperature 97.6. O2 sat on room air is 95%. HEENT reveals icterus. Chest clear. Cardiovascular system reveals an S1, S2. Abdomen is soft. There is no pedal edema. IMPRESSION: Choledocholithiasis, obstructive jaundice is likely. The patient is to undergo ERCP today. Depending on what this shows, we shall make further changes to his care. JOELLE
[2017-05-15 21:51] LABS: Glucose,Whole Blood 201 mg/dL (75-99)
[2017-05-16] MEDS: methylPREDNISolone SOD SUCCI 40 MG/ML 1 ML VIAL IV SCH ×2 (01:18→06:39)
[2017-05-16] MEDS: DEXTROSE 5%-0.9% NACL 1,000 ML IV SCH (01:23)
[2017-05-16] MEDS: diphenhydrAMINE 25 MG CAP PO PRN (04:53)
[2017-05-16 07:19] LABS: Glucose,Whole Blood 230 mg/dL (75-99)
--- NOTE | 2017-05-16 07:22 | FL ---
FLUOROSCOPY 1 minute and 52 seconds of fluoroscopy time were utilized during ERCP. 2 images document the procedur e.
[2017-05-16 07:51] VITALS: BP 155/90; PULSE 61; RESP 12; TEMP 98.1
[2017-05-16] MEDS: SODIUM CHLORIDE 0.9% 1,000 ML IV SCH (07:54)
[2017-05-16] MEDS: FAMOTIDINE 20 MG/2 ML VIAL IV SCH (07:58)
[2017-05-16] MEDS: INSULIN LISPRO (humaLOG) 300 UNIT/3 ML VIAL SQ SCH (07:58)
--- NOTE | 2017-05-16 07:58 | P.PN ---
Progress Note - Text The patient underwent ERCP yesterday. Common duct stones were removed. He is doing well from the procedure. Having breakfast. No pain. He's been up and about and ambulating the hallways. On examination he is afebrile. Vitals are stable. Abdomen is very soft and benign and nontender. Labs are pending. Impression choledocholithiasis pancreatitis now resolved. Question of retained cystic duct stones. Recommendation. From a surgical standpoint patient can be discharged home low- fat diet. Follow-up as needed.
--- NOTE | 2017-05-16 08:34 | P.PN ---
Subjective Principal diagnosis: obstructive jaundice s/p ERCP sphincterotomy secondary to CBD filing defects x 2. Morning chemistries pending. Afebrile. Denies abdominal pain. Objective - Vital Signs Vital signs: Vital Signs Temp 98.1 F 05/16/17 07:00 Pulse 61 05/16/17 07:00 Resp 12 05/16/17 07:00 BP 155/90 05/16/17 07:00 Pulse Ox 96 05/16/17 07:00 Intake & Output 05/15/17 05/16/17 05/16/17 18:59 06:59 18:59 Intake Total 1200 1600 Balance 1200 1600 Intake: IV 700 Intake, IV Titration 1100 Amount Dextrose 5%-0.9% NaCl 1, 1100 000 ml @ 100 mls/hr IV . Q10H ANN Rx#:[id number] Oral 500 500 Other: # Voids 1 - Constitutional General appearance: Present: average body habitus - EENT Eyes: Present: normal appearance - Neck Neck: Present: normal ROM - Respiratory Respiratory: bilateral: CTA - Cardiovascular Rhythm: regular Heart sounds: normal: S1, S2 - Gastrointestinal General gastrointestinal: Present: soft - Integumentary Integumentary: Present: normal turgor - Psychiatric Psychiatric: Present: A&O x's 3 - Labs CBC & Chem 7: 05/14/17 10:32 05/14/17 10:32 Labs: Abnormal Lab Results - Last 24 Hours (Table) 05/15/17 05/15/17 05/15/17 Range/Units 11:23 16:42 21:48 POC Glucose (mg/dL) 205 H 198 H 201 H (75-99) mg/dL 05/16/17 Range/Units 07:17 POC Glucose (mg/dL) 230 H (75-99) mg/dL Assessment and Plan (1) Choledocholithiasis Narrative/Plan: possible component of mild cholangitis s/p ERCP Status: Acute (2) Elevated liver enzymes Status: Acute (3) Acute intermittent porphyria Narrative/Plan: History of porphyria Status: Chronic Plan: 1. CMP if stable DC today. Home with Levaquin. RTO 2 weeks. Assessment and plan of care discussed with Dr. Campo
[2017-05-16 09:27] LABS: ALT 204 U/L (21-72); AST 30 U/L (17-59); Alkaline Phosphatase 92 U/L (38-126); Anion Gap 11 mmol/L; Blood Urea Nitrogen 13 mg/dL (9-20); Calcium 8.9 mg/dL (8.4-10.2); Carbon Dioxide 23 mmol/L (22-30); Chloride 106 mmol/L (98-107); Glucose 262 mg/dL (74-99); Non-African American GFR(MDRD) >60 (>60 ml/min/1.73 sqM); Potassium 3.9 mmol/L (3.5-5.1); Sodium 140 mmol/L (137-145); Total Bilirubin 1.2 mg/dL (0.2-1.3); Total Protein 6.1 g/dL (6.3-8.2)
[2017-05-16] MEDS ORDERED: LEVOFLOXACIN 500 MG TAB PO SCH (12:00)
--- NOTE | 2017-05-16 12:01 | PN ---
DATE OF SERVICE: 05/16/2017 He was seen on 05/16/2017. He has been hemodynamically stable. He is not short of breath. He has no abdominal pain today. His ERCP showed filling defect in the common bile duct. His sphincterotomy was enlarged. IMPRESSION AT THIS TIME: Obstructive jaundice from choledocholithiasis, status post sphincterotomy. At this time, would check his labs today. Increase his activity level. Advance his diet. If he otherwise stable, discharge planning is in process. There is a suggestion of inflammation or possibly ascending cholangitis for which he will require quinolone in the form of the Levaquin. Depending on how he does, we shall make further changes to his care. JOELLE
[2017-05-16] MEDS ORDERED: FAMOTIDINE 20 MG TAB PO SCH (21:00)
== END 2017-05-16 13:32 | disposition home or self-care (01) | DRG 444 ==
LOC: EC 00:13 → 3SUR 03:49
PROVIDERS: ADMIT Family Medicine; ATTEND Family Medicine
PROC: 0F798ZZ Dilation of Common Bile Duct, Via Natural or Artificial Opening Endoscopic (ICD-10-PCS; principal; 2017-05-15 08:00)
PROC: BF101ZZ Fluoroscopy of Bile Ducts using Low Osmolar Contrast (ICD-10-PCS; 2017-05-15 08:00)
DX: K80.66 Calculus of gallbladder and bile duct with acute and chronic cholecystitis without obstruction (principal); K85.90 Acute pancreatitis without necrosis or infection, unspecified; E80.21 Acute intermittent (hepatic) porphyria; E66.9 Obesity, unspecified; Z90.49 Acquired absence of other specified parts of digestive tract; Z88.1 Allergy status to other antibiotic agents; Z88.2 Allergy status to sulfonamides; Z88.8 Allergy status to other drugs, medicaments and biological substances; E11.9 Type 2 diabetes mellitus without complications
CPT/HCPCS: 36415; 43260; 43262; 43277; 74000; 74177; 74328; 76705; 80053; 81001; 82150; 83036; 83690; 85025; 85610; 96361; 96374; 96375; 99285

== ENCOUNTER → 2023-08-23 | Outpatient (CLI) | payer BC ==
--- NOTE | 2023-08-23 10:35 | CT ---
EXAMINATION TYPE: CT ChestAbdPelvis w con DATE OF EXAM: 08/23/2023 COMPARISON: 05/13/2017 HISTORY: choroid melanoma CT DLP: 2618 mGycm CONTRAST: CT scan of the chest, abdomen and pelvis is performed with Oral Contrast and with IV Contrast, patien t injected with 100 mL of Isovue 300. CT Chest: LUNGS: The lungs are clear and free of infiltrate or atelectasis. No pulmonary nodule or mass is det ected. No pleural effusion or CT evidence of interstitial lung disease. MEDIASTINUM: Thoracic aorta is of normal caliber. The heart is not enlarged. No evidence for media stinal mass or adenopathy. HILAR STRUCTURES: No evidence for mass. No hilar adenopathy is appreciated. OTHER: No significant abnormality. CONTRAST CT ABDOMEN AND PELVIS FINDINGS: LIVER/GB: No calcified gallstones. No space occupying hepatic lesion. Biliary tree is of normal ca liber. PANCREAS: No inflammation. No distinct mass. SPLEEN: No splenic enlargement. No lesion seen. ADRENALS: No nodule. No thickening. KIDNEYS/BLADDER: No hydronephrosis. No nephrolithiasis. Simple cyst left kidney. BOWEL: Normal appendix. Normal bowel caliber. No inflammation. GENITAL ORGANS: No gross abnormality. LYMPH NODES: No greater than 1cm abdominal or pelvic lymph nodes are appreciated. AORTA: No significant abnormality. OSSEOUS STRUCTURES: No significant abnormality is seen. OTHER: No significant additional abnormality is seen. IMPRESSION: 1. No evidence for metastatic disease to the chest, abdomen or pelvis.
== END | disposition home or self-care (01) ==
LOC: RADCTMAIN 07:58
PROVIDERS: ATTEND Ophthalmology
DX: H31.8 Other specified disorders of choroid (principal)
CPT/HCPCS: 71260; 74177; Q9967

== ENCOUNTER → 2023-11-24 | Outpatient (CLI) | payer BC ==
[2023-11-24 08:44] LABS: African American GFR (CKD) >90 (>60 ml/min/1.73 sqM); Blood Urea Nitrogen 20 mg/dL (9-20); Non-African American GFR(CKD) >90 (>60 ml/min/1.73 sqM)
--- NOTE | 2023-11-24 10:26 | CT ---
EXAMINATION TYPE: CT ChestAbdPelvis wo/w con DATE OF EXAM: 11/24/2023 INDICATION: Chorodial malignant melanoma, observe for mets. COMPARISON: 08/23/2023 CT DLP: 3441 mGycm CONTRAST: Performed with Oral Contrast and with IV Contrast, patient injected with 100 mL of Isovue 300. TECHNIQUE: Axial images at 5 mm thick sections. Reconstructed images in the coronal plane. Delayed images through the kidneys. FINDINGS: CT CHEST: Portion of the thyroid visualized is normal. No suspicious lung nodules or focal infiltrates are present. No enlarged mediastinal or hilar adenopathy is evident. The ascending aorta diameter at the level of the main pulmonary artery is 3.4 cm. The main pulmonary artery diameter at the bifurcation is 2.9 cm. Coronary artery calcifications present. CT ABDOMEN: Liver: Normal Spleen: Normal Pancreas: Normal Adrenal glands: The adrenal glands are normal. Gallbladder: Surgically absent Kidneys: No masses are evident. No hydronephrosis is present. There is a 1.8 cm cyst mid anterior l eft kidney. No renal stones are evident. Aorta: Normal Inferior vena cava: Normal. CT PELVIS: Loops of bowel within the abdomen and pelvis are normal. Few scattered diverticuli within the sigmoid colon. No acute diverticulitis. There are loops of bowel which are incompletely distended or lack oral contrast limiting their evaluation. Appendix: Normal as visualized. Urinary bladder: Normal. Genitourinary structures: Prostate appears slightly prominent Osseous structures: No suspicious lytic or sclerotic lesions. Lymphadenopathy: No suspicious enlarged lymphadenopathy. IMPRESSION: 1. No suspicious changes to suggest metastatic disease.
== END | disposition home or self-care (01) ==
LOC: RADCTMAIN 07:54
PROVIDERS: ATTEND Ophthalmology
DX: C69.31 Malignant neoplasm of right choroid (principal)
CPT/HCPCS: 82565; 84520; 71270; 74178; 36415; Q9967

== ENCOUNTER → 2024-02-26 | Outpatient (CLI) | payer BC ==
--- NOTE | 2024-02-27 08:36 | MR ---
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 COMPARISON: CT scan abdomen from 11/24/2023. TECHNIQUE: Multiplanar multi-sequence imaging was performed without contrast. Post contrast imaging was performed. Post IV contrast subtraction images were also submitted for review. IV Contrast: 10 cc Gadobutrol FINDINGS: LOWER CHEST: No gross irregularity. ABDOMEN Liver: No evidence for cirrhosis. Signal dropout on chemical shift out of phase imaging. There are at least 2r intrinsic high T1 signal heterogenous lesions throughout the liver measuring 11 and 16 mm. Smaller foci of signal abnormality are also visualized on other sequences also possibly r epresenting no additional sites of metastatic disease. There is postcontrast enhancement within these lesions as well as scattered foci of enhancement also demonstrated within the smaller lesions. Gallbladder and Bile ducts: No evidence for ductal dilation, or biliary stricture or evidence of chol edocholithiasis. The gallbladder is within normal limits. Pancreas: No ductal dilation. No evidence for solid mass. Spleen: Normal for size. Adrenal glands: Unremarkable. Kidneys: No evidence for obstructive uropathy. No suspicious renal masses. Appearing left renal cyst. Stomach and Bowel: No evidence for bowel wall thickening or evidence for obstruction. Retroperitoneum/Peritoneum: No evidence of pneumoperitoneum or free fluid. There is myla mesentery. Vasculature: No aortic aneurysm. Musculoskeletal: The osseous structures appear intact. Lymph Nodes: No gross evidence for lymphadenopathy. Abdominal wall: Unremarkable. IMPRESSION: 1. Scattered intrinsic high T1 signal hepatic lesions concerning for melanoma metastatic disease. Th e largest of which are seen on T1-weighted imaging. Other lesions are seen scattered throughout the l iver parenchyma on diffusion weighted imaging. There are 3 large dominant lesions and greater than 10 small or lesions suspected throughout the liver. 2. Simple appearing left renal cyst. 3. Nonspecific Myla mesentery.
== END | disposition home or self-care (01) ==
LOC: RADMRIMAIN 14:05
PROVIDERS: ATTEND Ophthalmology
DX: C69.31 Malignant neoplasm of right choroid (principal); N28.1 Cyst of kidney, acquired; Z85.820 Personal history of malignant melanoma of skin
CPT/HCPCS: 74183; A9585

== ENCOUNTER → 2024-03-22 | Outpatient (CLI) | payer BC ==
[2024-03-22 11:15] LABS: African American GFR (CKD) >90 (>60 ml/min/1.73 sqM); Blood Urea Nitrogen 17 mg/dL (9-20); Non-African American GFR(CKD) >90 (>60 ml/min/1.73 sqM)
--- NOTE | 2024-03-23 15:27 | CT ---
EXAMINATION TYPE: CT ChestAbdPelvis w con CT DLP: 1977 mGycm, Automated exposure control for dose reduction was used. 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 Two-dimensional coronal and sagittal reconstructions were obtained. Contrast used:100ml mL of Isovue 300 with IV Contrast, Oral contrast used: with Oral Contrast Findings: CHEST: LUNGS/ PLEURA: The lung parenchyma appears unremarkable. AIRWAY: Patent and unremarkable. HEART: Size within normal limits. MEDIASTINUM: No gross evidence of adenopathy. VASCULATURE: No aortic aneurysm. MUSCULOSKELETAL: No acute osseous abnormalities. SOFT TISSUES/LYMPH NODES: Unremarkable. LOWER NECK: No significant findings. ABDOMEN: ABDOMEN LIVER: Subtle lesions within the liver which demonstrate arterial phase enhancement and a very subtle corresponding with prior MRI. These should be further cyst progression GALLBLADDER AND BILE DUCTS: The gallbladder surgically absent there is small cystic duct remnant. PANCREAS: Unremarkable. SPLEEN: Unremarkable. ADRENAL GLANDS: Unremarkable. KIDNEYS AND URETERS: No evidence of hydronephrosis or renal calculus. The ureters are unremarkable. Simple left renal cyst. PELVIS BLADDER: Unremarkable REPRODUCTIVE: Unremarkable. ABDOMEN & PELVIS STOMACH AND BOWEL: No evidence of bowel obstruction. The appendix is normal. PERITONEUM: No evidence of pneumoperitoneum or free fluid. VASCULATURE: No evidence of aortic aneurysm. MUSCULOSKELETAL: No acute osseous abnormalities LYMPH NODES: No gross evidence for lymphadenopathy. SOFT TISSUE/ABDOMINAL WALL: Fat-containing umbilical hernia. IMPRESSION: Few liver lesions which are better very subtle on CT imaging, these should be evaluated for progressi on on MRI liver mass protocol. No lymphadenopathy visualized or other evidence of metastatic disease other than the liver lesions.
== END | disposition home or self-care (01) ==
LOC: RADCTMAIN 09:44
PROVIDERS: ATTEND Internal Medicine
DX: C69.91 Malignant neoplasm of unspecified site of right eye (principal); K76.89 Other specified diseases of liver; Z85.820 Personal history of malignant melanoma of skin; Z90.49 Acquired absence of other specified parts of digestive tract
CPT/HCPCS: 36415; 71260; 74177; 82565; 84520

== ENCOUNTER → 2024-03-29 | Outpatient (CLI) | payer BC ==
[2024-03-29 16:41] LABS: INR 0.9 (<1.2); Partial Thromboplastin Time 25.9 sec (22.0-30.0); Prothrombin Time 10.2 sec (10.0-12.5)
[2024-03-29 19:32] LABS: HCT 47.9 % (39.6-50.0); HGB 15.9 g/dL (13.0-17.0); MCH 29.3 pg (27.0-32.0); MCHC 33.2 g/dL (32.0-37.0); MCV 88.4 FL (80.0-97.0); Mean Platelet Volume 9.9 FL (9.5-12.2); NRBC Per 100 WBC 0 X 10*3/uL (0.00-0.01); Platelet Count 293 X 10*3/uL (140-440); RBC 5.42 X 10*6/uL (4.40-5.60); WBC 7.95 X 10*3/uL (4.50-10.00)
== END | disposition home or self-care (01) ==
LOC: LABWHC1 15:23
PROVIDERS: ATTEND Internal Medicine
DX: C69.91 Malignant neoplasm of unspecified site of right eye (principal)
CPT/HCPCS: 36415; 85027; 85610; 85730